=== PATIENT | male | born 1995 | race African-American/Black ===

== ENCOUNTER 2025-07-13 10:03 | Emergency (ER) | payer MEDICAID ==
[~2025-07-13] VITALS: Ht 175.3 cm; Wt 63.5 kg
[2025-07-13 10:38] VITALS: BP 105/55; TEMP 37.1; O2SAT 100
[2025-07-13 11:00] VITALS: PULSE 82; RESP 18; O2SAT 100
[2025-07-13 12:55] LABS: BASOPHILS % 0.9 % (0.0-2.0); EOSINOPHILS % 1.7 % (0.0-5.0); HEMATOCRIT. 44.5 % (42.0-52.0); HEMOGLOBIN. 15.2 g/dL (14.0-18.0); LYMPHOCYTES % 29.6 % (20.0-50.0); MEAN PLATELET VOLUME 8.2 fl (7.4-10.4); MONOCYTES % 6.2 % (2.0-8.0); NEUTROPHILS % 61.6 % (40.0-76.0); PLATELET 234 x1000/uL (130-400); RED BLOOD CELL COUNT 4.82 mill/uL (4.7-6.1); RED CELL DISTRIBUTION WIDTH 13.9 % (11.6-14.6)
[2025-07-13] MEDS: LORAZEPAM 1MG TABLET PO ONE (13:00)
[2025-07-13 13:08] LABS: INR 1.1
[2025-07-13 13:13] LABS: CREATININE 1.2 mg/dL (0.6-1.3); TROPONIN I HIGH SENSITIVITY < 4 ng/L (3.0-53); UREA NITROGEN BLOOD 7 mg/dL (9-23)
[2025-07-13 13:14] LABS: ASPARTATE AMINOTRANSFERASE 18 IU/L (<34)
[2025-07-13 13:15] LABS: BILIRUBIN DIRECT 0.3 mg/dL (<=3.0); BILIRUBIN TOTAL 1.0 mg/dL (0.1-1.0); PROTEIN TOTAL 7.9 g/dL (6.0-8.3)
== END 2025-07-13 11:59 | disposition home or self-care (01) ==
LOC: ER 10:03
DX: R07.89 Other chest pain (principal); R06.02 Shortness of breath; F32.A Depression, unspecified; F41.0 Panic disorder [episodic paroxysmal anxiety]; Z79.899 Other long term (current) drug therapy
CPT/HCPCS: 36415; 71045; 80048; 80076; 84484; 85025; 99284

== ENCOUNTER 2025-07-26 07:59 | Emergency (ER) | payer MEDICAID ==
[~2025-07-26] VITALS: Ht 175.3 cm; Wt 54.0 kg
[2025-07-26 08:09] VITALS: O2SAT 100
[2025-07-26 09:25] LABS: BASOPHILS % 0.9 % (0.0-2.0); EOSINOPHILS % 2.7 % (0.0-5.0); HEMATOCRIT. 44.0 % (42.0-52.0); HEMOGLOBIN. 14.9 g/dL (14.0-18.0); LYMPHOCYTES % 27.4 % (20.0-50.0); MEAN PLATELET VOLUME 8.0 fl (7.4-10.4); MONOCYTES % 13.8 % (2.0-8.0); NEUTROPHILS % 55.2 % (40.0-76.0); PLATELET 264 x1000/uL (130-400); RED BLOOD CELL COUNT 4.77 mill/uL (4.7-6.1); RED CELL DISTRIBUTION WIDTH 13.0 % (11.6-14.6)
[2025-07-26] MEDS: METOCLOPRAMIDE HCL 10MG/2ML VIAL IV ONE (09:25)
[2025-07-26] MEDS: DIPHENHYDRAMINE 50MG/ML VIAL IV ONE (09:25)
[2025-07-26] MEDS: KETOROLAC 15MG/ML VIAL IV ONE (09:25)
[2025-07-26] MEDS: SODIUM CHLORIDE 0.9% 1,000 ML IV ONE (09:26)
[2025-07-26] MEDS: ACETAMINOPHEN 500MG TABLET PO ONE (09:26)
[2025-07-26 09:35] LABS: CREATININE 1.0 mg/dL (0.6-1.3); UREA NITROGEN BLOOD 8 mg/dL (9-23)
[2025-07-26 10:34] VITALS: BP 110/72; PULSE 81; RESP 17; TEMP 36.9; O2SAT 100
== END 2025-07-26 10:35 | disposition home or self-care (01) ==
LOC: ER 07:59 → CMPBEDREQ 11:09
DX: G43.909 Migraine, unspecified, not intractable, without status migrainosus (principal); F41.9 Anxiety disorder, unspecified; F32.A Depression, unspecified; Z98.890 Other specified postprocedural states; Z79.899 Other long term (current) drug therapy
CPT/HCPCS: 80048; 85025; 36415; 96361; 96374; 96375; 99284; J1200; J1885; J2765; J7030; Z7610 ×2